=== PATIENT | female | born 1950 | race Caucasian/White ===

== ENCOUNTER 2019-05-02 15:24 | Inpatient (IN) ==
[2019-05-03] MEDS ORDERED: Sildenafil Citrate 20 MG TABLET PO PRN (15:38)
[2019-05-03] MEDS: Vancomycin Oral Soln 125 MG/2.5 ML UDC PO SCH ×2 (18:21→21:30)
[2019-05-03] MEDS: Metoprolol XL (24 HR) Succ 50 MG TAB.ER.24H PO SCH (21:25)
[2019-05-03] MEDS: CEVIMELINE PO SCH (21:25)
[2019-05-03] MEDS: DOXEPIN HCL PO SCH (21:25)
[2019-05-03] MEDS: Lactulose Oral Soln 20 GM/30 ML UDC PO SCH (21:31)
[2019-05-04 06:07] LABS: Albumin 1.9 g/dL (3.5-5.7); Albumin/Globulin Ratio 0.7 (1.1-2.2); Bilirubin,Total 0.9 mg/dL (0.3-1.0); Calcium 8.1 mg/dL (8.6-10.3); Globulin 2.7 g/dL (2.4-3.5); Magnesium 1.9 mg/dL (1.6-2.6); Potassium 4.2 mEq/L (3.5-5.1); Total Protein 4.6 g/dL (6.4-8.9)
[2019-05-04 08:05] LABS: Basophils % 0.1 %; Eosinophils % 0.5 %; Hematocrit 32.9 % (35.3-44.9); Hemoglobin 10.8 g/dL (11.5-15.4); Immature Granulocytes % 1.4 % (0-4); Lymphocytes # 0.6 K/mcL (0.6-4.6); Lymphocytes % 6.9 %; Mean Corpuscular HGB Conc 32.8 g/dL (31.6-35.5); Mean Corpuscular Hemoglobin 30.1 pg (28.0-33.3); Mean Corpuscular Volume 91.6 fL (83.0-100.0); Mean Platelet Volume 10.3 fL (9.4-12.4); Monocytes # 1.2 K/mcL (0.0-1.3); Monocytes % 14.6 %; Neutrophils # 6.5 K/mcL (1.6-8.9); Red Blood Count 3.59 M/mcL (3.82-4.97); Red Cell Distribution Width 16.2 % (11.5-14.5); Segmented Neutrophils % 76.5 %; White Blood Count 8.5 K/mcL (4.3-11.1)
[2019-05-04 08:06] LABS: INR 1.1; Prothrombin Time 12.4 Seconds (9.4-12.1)
[2019-05-04 08:07] LABS: Platelet Count 76 K/mcL (140-400)
[2019-05-04 08:09] LABS: Activated Partial Thrombo Time 30.9 Seconds (26.0-36.0)
--- NOTE | 2019-05-04 08:21 | Internal Med History&Physical ---
Date of Encounter: 05/04/19 Time of Encounter: 08:21 Assessment and Plan (1) Weakness Current visit: Yes Status: Acute We will begin therapy as tolerated. (2) C. difficile colitis Current visit: No Status: Acute We will continue antibiotic regimen as upon transfer. Patient will be kept in isolation per hospital policy. (3) CKD (chronic kidney disease), stage IV Current visit: No Status: Chronic Poor perfusion based on hypoalbuminemia, liver failure, etc. Need to make sure she is optimized so she does not develop hepatorenal syndrome. (4) Pancytopenia Current visit: No Status: Chronic We will need to follow on a frequent basis. Phlebotomy is difficult so we will need to determine central line, if possible. Recent CAT scan showed sp lenomegaly, as well. (5) Ascites Current visit: No Status: Chronic Based on examination, this is currently of moderate degree. This was noted to be present on recent CAT scan, as well. We will need to watch for respiratory failure, SBP, etc. Qualifiers: Ascites type: other type Qualified Code(s): R18.8 - Other ascites (6) Cirrhosis Current visit: No Status: Chronic This is marked, at least [place] C, with severe hypoalbuminemia to 1.9. She has esophageal varices, ascites, pancytopenia -although relatively mild - but edema and marked hyponatremia to 125. This is difficult and will require close monitoring of proteins, fluid status, dietary support, etc. Qualifiers: Hepatic cirrhosis type: unspecified hepatic cirrhosis Ascites presence: with ascites Qualified Code(s): K74.60 - Unspecified cirrhosis of liver; R18.8 - Other ascites (7) CREST (calcinosis, Raynaud's phenomenon, esophageal dysfunction, sclerodactyly, telangiectasia) Current visit: No Status: Chronic As noted, she has multiple problems associated with this. Will need close observation and support. Continue current regimen and watch labs as noted. (8) Dysphagia Current visit: No Status: Chronic Clinically stable, currently. Related to esophagitis and crest syndrome. Qualifiers: Dysphagia type: unspecified Qualified Code(s): R13.10 - Dysphagia, unspecified (9) CAD (coronary artery disease) Current visit: No Status: Chronic Clinically without signs or symptoms currently. She has sold Benefiel ordered and so should not have nitrates unless emergent. Would have low threshold to evaluate if chest pain or pressure develop. Qualifiers: Coronary Disease-Associated Artery/Lesion type: [place] artery [place] vs. transplanted heart: [place] heart Associated angina: without angina Qualified Code(s): I25.10 - Atherosclerotic heart disease of [place] coronary artery without angina pectoris (10) Hyponatremia Current visit: No Status: Acute Apparently worsened by diarrhea and will need to maintain supplementation, balanced with edema and ascites. Will need to stop sodium supplements and resume a low-salt diet or diarrhea resolves. (11) DVT prophylaxis Current visit: No Status: Acute Because of thrombocytopenia, would not recommend use of fractionated heparin, at this time. Similarly, would avoid low dose aspirin, edema prohibits surgical stockings. Therefore, will not be able to tolerate medical or nonmedical DVT prophylaxis. (12) GERD (gastroesophageal reflux disease) Current visit: Yes Status: Acute Controlled on current regimen. Qualifiers: Esophagitis presence: esophagitis presence not specified Qualified Code(s): K21.9 - Gastro-esophageal reflux disease without esophagitis (13) Hyperlipidemia Current visit: Yes Status: Acute Not acute. Will continue current regimen allow follow-up per primary physician. Qualifiers: Hyperlipidemia type: unspecified Qualified Code(s): E78.5 - Hyperlipidemia, unspecified Internal Medicine - H&P: HPI Admitted From: Hospital to Hospital Transfer Plans for Post Hospital Care: Home History of present illness: Ms. Sweeney is a 68 year old female with history of idiopathic crest syndrome for 10 years. She was in her usual state of health until about 10-14 days ago when she developed worsening diarrhea. She was found to have a C. difficile infection and was treated with rifamixin This did not help and she was placed on it though dose for approximately 3 days. She got worse and went to the hospital. There, she was placed on oral vancomycin, was found to have markedly elevated white blood count at 42,000+. She had a extreme left shift and was treated with IV fluids, saline, oral salt tablets (as opposed to a strict low- salt diet) and other supportive care. While hospitalized, she slowly improved and was transferred to us for strengthening, ongoing care and return to normal function. Bowel movements persist had multiple times a day and very loose although she may have 2-3 bowel movements which are loose, at baseline because of her lactulose. She denies melena or hematochezia with any of these episodes. The crest syndrome has now affected mostly her liver so that she has cirrhosis with moderate hepatic failure for the last 2 years. She has been taking lactulose for same. She has esophageal varices and has had banding on 2 occasions. Her most recent EGD failed to show any need for banding. Even though she has significant hypoalbuminemia, she is not suffering from orthopnea. She notes that the lower extremities are markedly edematous, during this hospitalization. She has extensive coronary history with 2 mild heart attacks but has 8 stents placed. She has had a couple episodes of bleeding, but not recently. She required 2 units of blood transfusion at one time. She has had a marginally low platelet count but has not received platelet transfusion. notes that her hyponatremia and fluid retention make her a very carious diuretic versus hypotension risk, for quite some time now. She has lost her left middle finger and is at risk of losing her left index finger, as well. She denies recent chest pain or breathing troubles. She knows that she does have a heart murmur but she is not sure of the type. One I ask specifically, the said that mitral valve regurgitation sounds familiar. says that her memory is occasionally inhibited and it was especially bad before she began lactulose. Now, she is reasonable with some tremor noted when she is not able to take her lactulose. She has kidney problems related to overdiuresis and protein effects of liver dysfunction. Usual creatinine was noted to be a 1.5. Because of difficult vascular access, she has a central port. She has never been a smoker or drinker or used drugs. She is and lives at home with her . She has not been working for about 10 years because of her medical illnesses. Family history is significant for coronary disease in his young 60s, in her father. I spoke about CODE STATUS with and patient and they request that she be made a full code. She has no living will. Past Med Surg Social Fam HX - Past Medical History Medical history: cirrhosis, coronary artery disease, GERD, hyperlipidemia, myocardial infarction, renal disease, other Additional medical history: Crest syndrome Psychiatric history: no psych history - Past Surgical History Surgical History: angioplasty/stent, cholecystectomy, hysterectomy, other Additional surgical history: Heart Stents x 8 - Social History Smoking Status: Never smoker Smokeless Tobacco Status: No Alcohol use: none Drug use: none - Family History Father Living Status: Hx Family Cardiac Disorders: Yes Internal Medicine - H&P: Meds Cevimeline HCl [Evoxac] 90 mg PO HS 09/19/15 [History] Doxepin HCl 30 mg PO HS 09/19/15 [History] Sildenafil Citrate [Revatio] 20 mg PO 3-4XD PRN 09/19/15 [History] Aspirin [Lo-Dose Aspirin EC] 81 mg PO 1200 04/25/19 [History] Atorvastatin [Lipitor] 40 mg PO 1200 04/25/19 [History] Calcium Carbonate/Vitamin D3 [Calcium 500 mg-Vit D3 600 Unit] 1 tab PO BID 04/25/19 [History] Ergocalciferol (VITAMIN D2) [Vitamin D2] 50,000 units PO MO 04/25/19 [History] Ferrous Sulfate 325 mg PO 1200 04/25/19 [History] Furosemide [Lasix] 40 mg PO QAM 04/25/19 [History] Lactulose [Enulose] 10 gm PO BID MDD 40GM 04/25/19 [History] Metoprolol Succinate [Toprol Xl] 50 mg PO BID 04/25/19 [History] Midodrine [ProAmatine] 5 mg PO TID 04/25/19 [History] Pantoprazole Sodium [Protonix] 40 mg PO QPM 04/25/19 [History] Rifaximin [Xifaxan] 550 mg PO BID 04/25/19 [History] Spironolactone [Aldactone] 25 mg PO 1200 04/25/19 [History] Tramadol HCl [Ultram] 50 mg PO Q8H PRN 04/25/19 [History] Lactobacillus [Culturelle] 2 each PO DAILY #30 cap.sprink 05/03/19 [Rx] Sodium Bicarbonate 650 mg PO TID #60 tablet 05/03/19 [Rx] Sodium Chloride [Sodium Chloride Tab] 1 gm PO TID #60 tablet 05/03/19 [Rx] Vancomycin Oral Soln [Firvanq] 125 mg PO QID 7 Days #28 udc 05/03/19 [Rx] Allergy/AdvReac Type Severity Reaction Status Date / Time codeine Allergy Mild Nausea Verified 04/25/19 16:46 All Systems PM: Patient has no complaint of chest discomfort, dyspnea, orthopnea, breathing problems, palpitations, nausea or vomiting, constipation or diarrhea, other changes in bowel habits, heartburn, difficulty with urination, kidney problems or kidney stones, fevers chills or sweats, rash or itching, seizures, headache or lightheadedness, heat or cold intolerance, blood problems or anemia, or other new complaints, except as mentioned above. Review of systems is otherwise negative. - Constitutional Vitals: Temp Pulse Resp BP Pulse Ox 98.2 F 91 18 117/77 95 05/04/19 07:10 05/04/19 07:10 05/04/19 07:10 05/04/19 07:10 05/04/19 07:10 Exam: Examination: (Except as mentioned above): General: In no apparent distress, alert and oriented 3. Head: Atraumatic and normocephalic. Eyes: Extraocular muscles are intact, pupils equal round and reactive to light and accommodation. Sclerae anicteric. Marked pallor. Ears: External ears are normal to inspection and hearing is grossly normal. Nose: Patent without lesion noted. Mouth: No intraoral lesions seen. Dentition is in poor repair with marked gingival retraction and missing several teeth upper and lower. Neck: Supple with trachea midline. There is no thyromegaly or adenopathy and carotids are 2+ without bruit heard. Respiratory: No use of accessory muscles. Lungs are clear throughout. Normal airflow. Cardiovascular: Regular rate and rhythm but she has a grade 2/6 systolic murmur heard at the left second intercostal space to left ventricular outflow tract. Does not radiate to her carotids. Abdomen: Bowel sounds are normal. No hepatosplenomegaly masses or tenderness. Abdomen is mild to moderately distended consistent with her known ascites. Even though she has documented hepatosplenomegaly by CAT scan, these are not palpable. No herniation. Extremities: No cyanosis clubbing but she does have 3+ edema at the calves and ankles with less at the feet. She has diminished capillary refill throughout her extremities.. Neurological: A and O 3. Cranial nerves II through XII are intact. No focal deficits and no abnormal movements or postures. Skin: Warm and non-diaphoretic with no lesions noted. Breasts, pelvic and rectal: Not examined. Internal Med - H&P Results - Labs CBC & Chem 7: 05/04/19 07:54 05/04/19 05:45 Labs: Short CBC 05/04/19 Range/Units 07:54 WBC 8.5 (4.3-11.1) K/mcL Hgb 10.8 L (11.5-15.4) g/dL Hct 32.9 L (35.3-44.9) % Plt Count 76 L (140-400) K/mcL Neutrophils # 6.5 (1.6-8.9) K/mcL BMP 05/04/19 05:45 Sodium 125 L Potassium 4.2 Chloride 99 Carbon Dioxide 21 L BUN 44 H Creatinine 1.30 H Glucose 91 Calcium 8.1 L Liver Function 05/04/19 Range/Units 05:45 Total Bilirubin 0.9 (0.3-1.0) mg/dL AST 24 (13-39) Units/L ALT 9 (7-52) Units/L Alkaline Phosphatase 170 H (34-104) Units/L Albumin 1.9 L (3.5-5.7) g/dL
[2019-05-04] MEDS: Lactobacillus 1 EACH CAP.SPRINK PO SCH (09:47)
[2019-05-04] MEDS: Furosemide 40 MG TABLET PO SCH (09:47)
[2019-05-04] MEDS: Vancomycin Oral Soln 125 MG/2.5 ML UDC PO SCH ×4 (09:47→21:32)
[2019-05-04] MEDS: Cholecalciferol (D-3) 1,000 UNIT (25MCG) TABLET PO SCH (09:47)
[2019-05-04] MEDS: Lactulose Oral Soln 20 GM/30 ML UDC PO SCH ×2 (09:48→21:32)
[2019-05-04] MEDS: Metoprolol XL (24 HR) Succ 50 MG TAB.ER.24H PO SCH ×2 (09:48→21:33)
[2019-05-04] MEDS: Spironolactone 25 MG TABLET PO SCH (13:14)
[2019-05-04] MEDS: Aspirin Enteric Coated 81 MG Tablet PO SCH (13:14)
[2019-05-04] MEDS: CEVIMELINE PO SCH (21:34)
[2019-05-04] MEDS: DOXEPIN HCL PO SCH (21:34)
[2019-05-05] MEDS: Furosemide 40 MG TABLET PO SCH (09:23)
[2019-05-05] MEDS: Cholecalciferol (D-3) 1,000 UNIT (25MCG) TABLET PO SCH (09:23)
[2019-05-05] MEDS: Lactobacillus 1 EACH CAP.SPRINK PO SCH (09:23)
[2019-05-05] MEDS: Lactulose Oral Soln 20 GM/30 ML UDC PO SCH ×2 (09:24→21:23)
[2019-05-05] MEDS: Vancomycin Oral Soln 125 MG/2.5 ML UDC PO SCH ×4 (09:24→21:23)
[2019-05-05] MEDS: Metoprolol XL (24 HR) Succ 50 MG TAB.ER.24H PO SCH (09:24)
[2019-05-05 09:41] LABS: BUN/Creatinine Ratio 34 (6-26); Blood Urea Nitrogen 37 mg/dL (8-23); Calcium 8.3 mg/dL (8.6-10.3); Carbon Dioxide 23 mEq/L (23-29); Chloride 98 mEq/L (98-107); Glucose 88 mg/dL (70-105); Osmolality,Calculated 272 (280-300); Potassium 3.8 mEq/L (3.5-5.1); Sodium 127 mEq/L (136-145); eGFR For African Americans > 60 (> 60); eGFR For Non-African Americans 50 (> 60)
[2019-05-05] MEDS: Aspirin Enteric Coated 81 MG Tablet PO SCH (12:10)
[2019-05-05] MEDS: Spironolactone 25 MG TABLET PO SCH (12:10)
--- NOTE | 2019-05-05 12:17 | Internal Med Progress Note ---
Date of Encounter: 05/05/19 Time of Encounter: 12:34 - Subjective Interval history: Assessment and Plan (1) Weakness Current visit: Yes Status: Acute We will begin therapy as tolerated. (2) C. difficile colitis Current visit: No Status: Acute We will continue antibiotic regimen as upon transfer. Patient will be kept in isolation per hospital policy. (3) CKD (chronic kidney disease), stage IV Current visit: No Status: Chronic Poor perfusion based on hypoalbuminemia, liver failure, etc. Need to make sure she is optimized so she does not develop hepatorenal syndrome. (4) Pancytopenia Current visit: No Status: Chronic We will need to follow on a frequent basis. Phlebotomy is difficult so we will need to determine central line, if possible. Recent CAT scan showed splenomegaly, as well. (5) Ascites Current visit: No Status: Chronic Based on examination, this is currently of moderate degree. This was noted to be present on recent CAT scan, as well. We will need to watch for respiratory failure, SBP, etc. Qualifiers: Ascites type: other type Qualified Code(s): R18.8 - Other ascites (6) Cirrhosis Current visit: No Status: Chronic This is marked, at least [place] C, with severe hypoalbuminemia to 1.9. She has esophageal varices, ascites, pancytopenia -although relatively mild - but edema and marked hyponatremia to 125. This is difficult and will require close monitoring of proteins, fluid status, dietary support, etc. Qualifiers: Hepatic cirrhosis type: unspecified hepatic cirrhosis Ascites presence: with ascites Qualified Code(s): K74.60 - Unspecified cirrhosis of liver; R18.8 - Other ascites (7) CREST (calcinosis, Raynaud's phenomenon, esophageal dysfunction, sclerodactyly, telangiectasia) Current visit: No Status: Chronic As noted, she has multiple problems associated with this. Will need close observation and support. Continue current regimen and watch labs as noted. (8) Dysphagia Current visit: No Status: Chronic Clinically stable, currently. Related to esophagitis and crest syndrome. Qualifiers: Dysphagia type: unspecified Qualified Code(s): R13.10 - Dysphagia, unspecified (9) CAD (coronary artery disease) Current visit: No Status: Chronic Clinically without signs or symptoms currently. She has sold Benefiel ordered and so should not have nitrates unless emergent. Would have low threshold to evaluate if chest pain or pressure develop. Qualifiers: Coronary Disease-Associated Artery/Lesion type: [place] artery [place] vs. transplanted heart: [place] heart Associated angina: without angina Qualified Code(s): I25.10 - Atherosclerotic heart disease of [place] coronary artery without angina pectoris (10) Hyponatremia Current visit: No Status: Acute Apparently worsened by diarrhea and will need to maintain supplementation, balanced with edema and ascites. Will need to stop sodium supplements and resume a low-salt diet or diarrhea resolves. (11) DVT prophylaxis Current visit: No Status: Acute Because of thrombocytopenia, would not recommend use of fractionated heparin, at this time. Similarly, would avoid low dose aspirin, edema prohibits surgical stockings. Therefore, will not be able to tolerate medical or nonmedical DVT prophylaxis. (12) GERD (gastroesophageal reflux disease) Current visit: Yes Status: Acute Controlled on current regimen. Qualifiers: Esophagitis presence: esophagitis presence not specified Qualified Code(s): K21.9 - Gastro-esophageal reflux disease without esophagitis (13) Hyperlipidemia Current visit: Yes Status: Acute Not acute. Will continue current regimen allow follow-up per primary physician. Qualifiers: Hyperlipidemia type: unspecified Qualified Code(s): E78.5 - Hyperlipidemia, unspecified Internal Medicine - H&P: HPI Admitted From: Hospital to Hospital Transfer Plans for Post Hospital Care: Home History of present illness: Ms. Sweeney is a 68 year old female with history of idiopathic crest syndrome for 10 years. She was in her usual state of health until about 10-14 days ago when she developed worsening diarrhea. She was found to have a C. difficile infection and was treated with rifamixin This did not help and she was placed on it though dose for approximately 3 days. She got worse and went to the hospital. There, she was placed on oral vancomycin, was found to have markedly elevated white blood count at 42,000+. She had a extreme left shift and was treated with IV fluids, saline, oral salt tablets (as opposed to a strict low- salt diet) and other supportive care. While hospitalized, she slowly improved and was transferred to us for the medical center, ongoing care and return to normal function. Bowel movements persist had multiple times a day and very loose although she may have 2-3 bowel movements which are loose, at baseline because of her lactulose. She denies melena or hematochezia with any of these episodes. The crest syndrome has now affected mostly her liver so that she has cirrhosis with moderate hepatic failure for the last 2 years. She has been taking lactulose for same. She has esophageal varices and has had banding on 2 occasions. Her most recent EGD failed to show any need for banding. Even though she has significant hypoalbuminemia, she is not suffering from orthopnea. She notes that the lower extremities are markedly edematous, during this hospitalization. She has extensive coronary history with 2 mild heart attacks but has 8 stents placed. She has had a couple episodes of bleeding, but not recently. She required 2 units of blood transfusion at one time. She has had a marginally low platelet c ount but has not received platelet transfusion. notes that her hyponatremia and fluid retention make her a very carious diuretic versus hypotension risk, for quite some time now. She has lost her left middle finger and is at risk of losing her left index finger, as well. She denies recent chest pain or breathing troubles. She knows that she does have a heart murmur but she is not sure of the type. One I ask specifically, the said that mitral valve regurgitation sounds familiar. says that her memory is occasionally inhibited and it was especially bad before she began lactulose. Now, she is reasonable with some tremor noted when she is not able to take her lactulose. She has kidney problems related to overdiuresis and protein effects of liver dysfunction. Usual creatinine was noted to be a 1.5. Because of difficult vascular access, she has a central port. She has never been a smoker or drinker or used drugs. She is and lives at home with her . She has not been working for about 10 years because of her medical illnesses. Family history is significant for coronary disease in his young 60s, in her father. I spoke about CODE STATUS with and patient and they request that she be made a full code. She has no living will. Exam: Examination: General: In no apparent distress, alert and oriented 3. Head: Atraumatic and normocephalic. Eyes: Extraocular muscles are intact, pupils equal round and reactive to light and accommodation. Sclerae anicteric. Marked pallor. Ears: External ears are normal to inspection and hearing is grossly normal. Nose: Patent without lesion noted. Mouth: No intraoral lesions seen. Dentition is in poor repair with marked gingival retraction and missing several teeth upper and lower. Neck: Supple with trachea midline. There is no thyromegaly or adenopathy and carotids are 2+ without bruit heard. Respiratory: No use of accessory muscles. Lungs are clear throughout. Normal airflow. Cardiovascular: Regular rate and rhythm but she has a grade 2/6 systolic murmur heard at the left second intercostal space to left ventricular outflow tract. Does not radiate to her carotids. Abdomen: Bowel sounds are normal. Abdomen is mild to moderately distended consistent with her known ascites. Even though she has documented hepatosple nomegaly by CAT scan, these are not palpable. No herniation. Extremities: No cyanosis clubbing but she does have 3+ edema at the calves and ankles with less at the feet. She has diminished capillary refill throughout her extremities.. Neurological: A and O 3. Cranial nerves II through XII are intact. No focal deficits and no abnormal movements or postures. Skin: Warm and non-diaphoretic with no lesions noted. - Constitutional Vitals: Temp Pulse Resp BP Pulse Ox 98.6 F 65 16 115/72 94 05/05/19 07:00 05/05/19 07:00 05/05/19 07:00 05/05/19 07:00 05/04/19 21:57 Internal Medicine: Result - Labs CBC & Chem 7: 05/04/19 07:54 05/05/19 08:38 Labs: BMP 05/05/19 08:38 Sodium 127 L Potassium 3.8 Chloride 98 Carbon Dioxide 23 BUN 37 H Creatinine 1.10 Glucose 88 Calcium 8.3 L - ABG Interpretation ABG results: PT/INR, D-dimer PT 12.4 Seconds (9.4-12.1) H 05/04/19 04:00 Consult Discharge Plan - Plan Referrals: Kam Abreu Jr, MD [Primary Care Provider] -
[2019-05-05] MEDS: CEVIMELINE PO SCH (21:12)
[2019-05-05] MEDS: DOXEPIN HCL PO SCH (21:12)
[2019-05-05] MEDS: Metoprolol XL (24 HR) Succ 25 MG TAB.ER.24H PO SCH (21:22)
[2019-05-06] MEDS: Metoprolol XL (24 HR) Succ 25 MG TAB.ER.24H PO SCH ×2 (08:33→20:35)
[2019-05-06] MEDS: Lactobacillus 1 EACH CAP.SPRINK PO SCH (08:33)
[2019-05-06] MEDS: Furosemide 40 MG TABLET PO SCH (08:33)
[2019-05-06] MEDS: Cholecalciferol (D-3) 1,000 UNIT (25MCG) TABLET PO SCH (08:33)
[2019-05-06] MEDS: Vancomycin Oral Soln 125 MG/2.5 ML UDC PO SCH ×4 (08:34→20:34)
[2019-05-06] MEDS: Lactulose Oral Soln 20 GM/30 ML UDC PO SCH ×2 (11:32→19:33)
[2019-05-06] MEDS: Spironolactone 25 MG TABLET PO SCH (11:37)
[2019-05-06] MEDS: Aspirin Enteric Coated 81 MG Tablet PO SCH (11:37)
--- NOTE | 2019-05-06 12:26 | Internal Med Progress Note ---
Date of Encounter: 05/06/19 Time of Encounter: 12:24 - Assessment and plan (1) Colitis Current Visit: Yes Status: Acute Assessment and plan: Continue current medication. Monitor. Follow labs. Continue contact precautions. (2) Cirrhosis Current Visit: Yes Status: Chronic Assessment and plan: Monitor labs. Qualifiers: Hepatic cirrhosis type: unspecified hepatic cirrhosis Ascites presence: with ascites Qualified Code(s): K74.60 - Unspecified cirrhosis of liver; R18.8 - Other ascites (3) CREST (calcinosis, Raynaud's phenomenon, esophageal dysfunction, sclerodactyly, telangiectasia) Current Visit: Yes Status: Chronic Assessment and plan: Follow up with machine tailer. Continue current regimen. (4) CKD (chronic kidney disease), stage IV Current Visit: Yes Status: Chronic Assessment and plan: Will repeat labs in a.m. Avoid nephrotoxic agents. (5) Weakness Current Visit: Yes Status: Acute Assessment and plan: PT and OT to eval and treat. Will follow progress. - Time Spent With Patient less than 15 minutes - Subjective Interval history: Participating well with therapy. Was able to ambulate in hallway. at bedside at this time. Denies any pain. States she is continuing to have diarrhea. On contact precautions for CDifF. Is trying to eat meals and encouraging PO fluids. Denies fever, chills, nausea or vomitting. Denies shortness of breath or chest pain. - Constitutional Vitals: Temp Pulse Resp BP Pulse Ox 97.5 F L 70 15 104/68 95 05/06/19 07:55 05/06/19 07:55 05/06/19 07:55 05/06/19 07:55 05/06/19 07:55 General appearance: Present: cooperative, mild distress, A&O X 3, no acute distress, answers questions appropriately - Head Head exam: Present: atraumatic, normocephalic - Eye Eye exam: Present: PERRL, conjuntiva pink, sclera anicteric Pupils: Present: PERRL - Neck Neck exam general surgery: Present: supple, trachea midline. Absent: lymphadenopathy - Respiratory Respiratory exam: Present: CTAB. Absent: accessory muscle use, rales, rhonchi, wheezes - Cardiovascular Cardiovascular exam: Present: RRR, +S1, +S2. Absent: diastolic murmur, gallop, rubs, systolic murmur - GI/Abdominal GI/Abdominal exam: Present: normal bowel sounds, soft, no peritoneal signs. Absent: distended, tenderness - Extremities Exam Extremities exam: Present: warm, radial pulses palpable and symmetrical. Absent: calf tenderness, cyanotic, pedal edema Additional comments: Non-pitting bilateral lower extremity edema - Neurological Exam Neurological exam: Present: CN II-XII intact, oriented X3, no focal deficits. Absent: pronater drift, facial droop, speech deficit - Skin Skin exam: Present: dry, intact Internal Medicine: Result - Labs CBC & Chem 7: 05/04/19 07:54 05/05/19 08:38 - ABG Interpretation ABG results: PT/INR, D-dimer PT 12.4 Seconds (9.4-12.1) H 05/04/19 04:00 Consult Discharge Plan - Plan Referrals: Kam Abreu Jr, MD [Primary Care Provider] -
[2019-05-06 14:15] LABS: Basophils % 0.1 %; Eosinophils % 0.1 %; Hematocrit 33.2 % (35.3-44.9); Hemoglobin 10.6 g/dL (11.5-15.4); Lymphocytes # 0.7 K/mcL (0.6-4.6); Lymphocytes % 8.5 %; Mean Corpuscular HGB Conc 31.9 g/dL (31.6-35.5); Mean Corpuscular Hemoglobin 30.2 pg (28.0-33.3); Mean Corpuscular Volume 94.6 fL (83.0-100.0); Mean Platelet Volume 10.4 fL (9.4-12.4); Monocytes # 1.5 K/mcL (0.0-1.3); Red Blood Count 3.51 M/mcL (3.82-4.97); Red Cell Distribution Width 17.2 % (11.5-14.5); Segmented Neutrophils % 72.3 %; White Blood Count 8.3 K/mcL (4.3-11.1)
[2019-05-06 14:38] LABS: Platelet Count 86 K/mcL (140-400)
[2019-05-06 15:36] LABS: BUN/Creatinine Ratio 31 (6-26); Blood Urea Nitrogen 34 mg/dL (8-23); Calcium 8.2 mg/dL (8.6-10.3); Carbon Dioxide 22 mEq/L (23-29); Chloride 99 mEq/L (98-107); Glucose 102 mg/dL (70-105); Osmolality,Calculated 272 (280-300); Potassium 3.8 mEq/L (3.5-5.1); Sodium 127 mEq/L (136-145); eGFR For African Americans > 60 (> 60); eGFR For Non-African Americans 50 (> 60)
[2019-05-06] MEDS: DOXEPIN HCL PO SCH (20:18)
[2019-05-06] MEDS: CEVIMELINE PO SCH (20:18)
[2019-05-07] MEDS: Furosemide 40 MG TABLET PO SCH (08:58)
[2019-05-07] MEDS: Metoprolol XL (24 HR) Succ 25 MG TAB.ER.24H PO SCH ×2 (08:59→19:53)
[2019-05-07] MEDS: Cholecalciferol (D-3) 1,000 UNIT (25MCG) TABLET PO SCH (08:59)
[2019-05-07] MEDS: Lactobacillus 1 EACH CAP.SPRINK PO SCH (08:59)
[2019-05-07] MEDS: Lactulose Oral Soln 20 GM/30 ML UDC PO SCH ×2 (09:00→19:53)
[2019-05-07] MEDS: Vancomycin Oral Soln 125 MG/2.5 ML UDC PO SCH ×4 (09:00→19:53)
[2019-05-07] MEDS: traMADol 50 MG TABLET PO PRN ×2 (09:15→16:46)
[2019-05-07] MEDS: Aspirin Enteric Coated 81 MG Tablet PO SCH (12:02)
[2019-05-07] MEDS: Spironolactone 25 MG TABLET PO SCH (12:02)
--- NOTE | 2019-05-07 17:13 | Internal Med Progress Note ---
Date of Encounter: 05/07/19 Time of Encounter: 15:23 - Subjective Interval history: Assessment and Plan (1) Weakness Current visit: Yes Status: Acute We will begin therapy as tolerated. (2) C. difficile colitis Current visit: No Status: Acute We will continue antibiotic regimen as upon transfer. Patient will be kept in isolation per hospital policy. (3) CKD (chronic kidney disease), stage IV Current visit: No Status: Chronic Poor perfusion based on hypoalbuminemia, liver failure, etc. Need to make sure she is optimized so she does not develop hepatorenal syndrome. (4) Pancytopenia Current visit: No Status: Chronic We will need to follow on a frequent basis. Phlebotomy is difficult so we will need to determine central line, if possible. Recent CAT scan showed splenomegaly, as well. (5) Ascites Current visit: No Status: Chronic Based on examination, this is currently of moderate degree. This was noted to be present on recent CAT scan, as well. We will need to watch for respiratory failure, SBP, etc. Qualifiers: Ascites type: other type Qualified Code(s): R18.8 - Other ascites (6) Cirrhosis Current visit: No Status: Chronic This is marked, at least [place] C, with severe hypoalbuminemia to 1.9. She has esophageal varices, ascites, pancytopenia -although relatively mild - but edema and marked hyponatremia to 125. This is difficult and will require close monitoring of proteins, fluid status, dietary support, etc. Qualifiers: Hepatic cirrhosis type: unspecified hepatic cirrhosis Ascites presence: with ascites Qualified Code(s): K74.60 - Unspecified cirrhosis of liver; R18.8 - Other ascites (7) CREST (calcinosis, Raynaud's phenomenon, esophageal dysfunction, sclerodactyly, telangiectasia) Current visit: No Status: Chronic As noted, she has multiple problems associated with this. Will need close observation and support. Continue current regimen and watch labs as noted. (8) Dysphagia Current visit: No Status: Chronic Clinically stable, currently. Related to esophagitis and crest syndrome. Qualifiers: Dysphagia type: unspecified Qualified Code(s): R13.10 - Dysphagia, unspecified (9) CAD (coronary artery disease) Current visit: No Status: Chronic Clinically without signs or symptoms currently. She has sold Benefiel ordered and so should not have nitrates unless emergent. Would have low threshold to evaluate if chest pain or pressure develop. Qualifiers: Coronary Disease-Associated Artery/Lesion type: [place] artery [place] vs. transplanted heart: [place] heart Associated angina: without angina Qualified Code(s): I25.10 - Atherosclerotic heart disease of [place] coronary artery without angina pectoris (10) Hyponatremia Current visit: No Status: Acute Apparently worsened by diarrhea and will need to maintain supplementation, balanced with edema and ascites. Will need to stop sodium supplements and resume a low-salt diet or diarrhea resolves. (11) DVT prophylaxis Current visit: No Status: Acute Because of thrombocytopenia, would not recommend use of fractionated heparin, at this time. Similarly, would avoid low dose aspirin, edema prohibits surgical stockings. Therefore, will not be able to tolerate medical or nonmedical DVT prophylaxis. (12) GERD (gastroesophageal reflux disease) Current visit: Yes Status: Acute Controlled on current regimen. Qualifiers: Esophagitis presence: esophagitis presence not specified Qualified Code(s): K21.9 - Gastro-esophageal reflux disease without esophagitis (13) Hyperlipidemia Current visit: Yes Status: Acute Not acute. Will continue current regimen allow follow-up per primary physician. Qualifiers: Hyperlipidemia type: unspecified Qualified Code(s): E78.5 - Hyperlipidemia, unspecified Internal Medicine - H&P: HPI Admitted From: Hospital to Hospital Transfer Plans for Post Hospital Care: Home History of present illness: Ms. Sweeney is a 68 year old female with history of idiopathic crest syndrome for 10 years. She was in her usual state of health until about 10-14 days ago when she developed worsening diarrhea. She was found to have a C. difficile infection and was treated with rifamixin This did not help and she was placed on it though dose for approximately 3 days. She got worse and went to the hospital. There, she was placed on oral vancomycin, was found to have markedly elevated white blood count at 42,000+. She had a extreme left shift and was treated with IV fluids, saline, oral salt tablets (as opposed to a strict low- salt diet) and other supportive care. While hospitalized, she slowly improved and was transferred to us for [facility], ongoing care and return to normal function. Bowel movements persist had multiple times a day and very loose although she may have 2-3 bowel movements which are loose, at baseline because of her lactulose. She denies melena or hematochezia with any of these episodes. The crest syndrome has now affected mostly her liver so that she has cirrhosis with moderate hepatic failure for the last 2 years. She has been taking lactulose for same. She has esophageal varices and has had banding on 2 occasions. Her most recent EGD failed to show any need for banding. Even though she has significant hypoalbuminemia, she is not suffering from orthopnea. She notes that the lower extremities are markedly edematous, during this hospitalization. She has extensive coronary history with 2 mild heart attacks but has 8 stents placed. She has had a couple episodes of bleeding, but not recently. She required 2 units of blood transfusion at one time. She has had a marginally low platelet c ount but has not received platelet transfusion. notes that her hyponatremia and fluid retention make her a very carious diuretic versus hypotension risk, for quite some time now. She has lost her left middle finger and is at risk of losing her left index finger, as well. She denies recent chest pain or breathing troubles. She knows that she does have a heart murmur but she is not sure of the type. One I ask specifically, the said that mitral valve regurgitation sounds familiar. says that her memory is occasionally inhibited and it was especially bad before she began lactulose. Now, she is reasonable with some tremor noted when she is not able to take her lactulose. She has kidney problems related to overdiuresis and protein effects of liver dysfunction. Usual creatinine was noted to be a 1.5. Because of difficult vascular access, she has a central port. She has never been a smoker or drinker or used drugs. She is and lives at home with her . She has not been working for about 10 years because of her medical illnesses. Family history is significant for coronary disease in his young 60s, in her father. I spoke about CODE STATUS with and patient and they request that she be made a full code. She has no living will. Exam: Examination: General: In no apparent distress, alert and oriented 3. Head: Atraumatic and normocephalic. Eyes: Extraocular muscles are intact, pupils equal round and reactive to light and accommodation. Sclerae anicteric. Marked pallor. Ears: External ears are normal to inspection and hearing is grossly normal. Nose: Patent without lesion noted. Mouth: No intraoral lesions seen. Dentition is in poor repair with marked gingival retraction and missing several teeth upper and lower. Neck: Supple with trachea midline. There is no thyromegaly or adenopathy and carotids are 2+ without bruit heard. Respiratory: No use of accessory muscles. Lungs are clear throughout. Normal airflow. Cardiovascular: Regular rate and rhythm but she has a grade 2/6 systolic murmur heard at the left second intercostal space to left ventricular outflow tract. Does not radiate to her carotids. Abdomen: Bowel sounds are normal. Abdomen is mild to moderately distended consistent with her known ascites. Even though she has documented hepatosple nomegaly by CAT scan, these are not palpable. No herniation. Extremities: No cyanosis clubbing but she does have 3+ edema at the calves and ankles with less at the feet. She has diminished capillary refill throughout her extremities.. Neurological: A and O 3. Cranial nerves II through XII are intact. No focal deficits and no abnormal movements or postures. Skin: Warm and non-diaphoretic with no lesions noted. - Constitutional Vitals: Temp Pulse Resp BP Pulse Ox 97.4 F L 73 17 105/67 96 05/07/19 07:04 05/07/19 07:04 05/07/19 07:04 05/07/19 07:04 05/07/19 07:04 General appearance: Present: cooperative, mild distress, A&O X 3, no acute distress, answers questions appropriately Internal Medicine: Result - Labs CBC & Chem 7: 05/06/19 14:15 05/06/19 14:18 - ABG Interpretation ABG results: PT/INR, D-dimer PT 12.4 Seconds (9.4-12.1) H 05/04/19 04:00 Consult Discharge Plan - Plan Referrals: Kam Abreu Jr, MD [Primary Care Provider] -
[2019-05-07] MEDS: DOXEPIN HCL PO SCH (19:53)
[2019-05-07] MEDS: CEVIMELINE PO SCH (19:53)
[2019-05-08] MEDS: Lactobacillus 1 EACH CAP.SPRINK PO SCH (10:07)
[2019-05-08] MEDS: Cholecalciferol (D-3) 1,000 UNIT (25MCG) TABLET PO SCH (10:07)
[2019-05-08] MEDS: Vancomycin Oral Soln 125 MG/2.5 ML UDC PO SCH ×4 (10:08→19:52)
[2019-05-08] MEDS: Metoprolol XL (24 HR) Succ 25 MG TAB.ER.24H PO SCH ×2 (10:08→19:52)
[2019-05-08] MEDS: Lactulose Oral Soln 20 GM/30 ML UDC PO SCH ×2 (10:08→19:52)
[2019-05-08] MEDS: traMADol 50 MG TABLET PO PRN ×2 (10:08→18:09)
[2019-05-08] MEDS: Furosemide 40 MG TABLET PO SCH (10:08)
[2019-05-08] MEDS: Spironolactone 25 MG TABLET PO SCH (12:54)
[2019-05-08] MEDS: Aspirin Enteric Coated 81 MG Tablet PO SCH (12:55)
--- NOTE | 2019-05-08 18:46 | Internal Med Progress Note ---
Date of Encounter: 05/08/19 Time of Encounter: 17:30 - Subjective Interval history: Assessment and Plan (1) Weakness Current visit: Yes Status: Acute We will begin therapy as tolerated. pt says she usually spends most of day in bed at home for past 6 mos discussed with pt and her he retired early and spends all time caring for her he says she stays in bed most of day and then is awake at night when he sleep she wont go to social or fam events pt says embarrassed and does not want to be burden pt distressed but not know what to do since he loves her and says he knows she is fragile discussed with the two to have discussion between themselves as they say they both tend to keep things in (2) C. difficile colitis Current visit: No Status: Acute We will continue antibiotic regimen as upon transfer. Patient will be kept in isolation per hospital policy. Pt not eating well but states she usually does not eat much even before this (3) CKD (chronic kidney disease), stage IV Current visit: No Status: Chronic Poor perfusion based on hypoalbuminemia, liver failure, etc. Need to make sure she is optimized so she does not develop hepatorenal syndrome. (4) Pancytopenia Current visit: No Status: Chronic We will need to follow on a frequent basis. Phlebotomy is difficult so we will need to determine central line, if possible. Recent CAT scan showed splenomegaly, as well. (5) Ascites Current visit: No Status: Chronic Based on examination, this is currently of moderate degree. This was noted to be present on recent CAT scan, as well. We will need to watch for respiratory failure, SBP, etc. Qualifiers: Ascites type: other type Qualified Code(s): R18.8 - Other ascites (6) Cirrhosis Current visit: No Status: Chronic This is marked, at least [place] C, with severe hypoalbuminemia to 1.9. She has esophageal varices, ascites, pancytopenia -although relatively mild - but edema and marked hyponatremia to 125. This is difficult and will require close monitoring of proteins, fluid status, dietary support, etc. Qualifiers: Hepatic cirrhosis type: unspecified hepatic cirrhosis Ascites presence: with ascites Qualified Code(s): K74.60 - Unspecified cirrhosis of liver; R18.8 - Other ascites (7) CREST (calcinosis, Raynaud's phenomenon, esophageal dysfunction, scleroda ctyly, telangiectasia) Current visit: No Status: Chronic As noted, she has multiple problems associated with this. Will need close observation and support. Continue current regimen and watch labs as noted. pt says that her illness started shortly after trauma of loosing her brother in [place] (8) Dysphagia Current visit: No Status: Chronic Clinically stable, currently. Related to esophagitis and crest syndrome. Qualifiers: Dysphagia type: unspecified Qualified Code(s): R13.10 - Dysphagia, unspecified (9) CAD (coronary artery disease) Current visit: No Status: Chronic Clinically without signs or symptoms currently. She has sold Benefiel ordered and so should not have nitrates unless emergent. Would have low threshold to evaluate if chest pain or pressure develop. Qualifiers: Coronary Disease-Associated Artery/Lesion type: [place] artery [place] vs. transplanted heart: [place] heart Associated angina: without angina Qualified Code(s): I25.10 - Atherosclerotic heart disease of [place] coronary artery without angina pectoris (10) Hyponatremia Current visit: No Status: Acute Apparently worsened by diarrhea and will need to maintain supplementation, dione miguel with edema and ascites. Will need to stop sodium supplements and resume a low-salt diet or diarrhea resolves. (11) DVT prophylaxis Current visit: No Status: Acute Because of thrombocytopenia, would not recommend use of fractionated heparin, at this time. Similarly, would avoid low dose aspirin, edema prohibits surgical stockings. Therefore, will not be able to tolerate medical or nonmedical DVT prophylaxis. (12) GERD (gastroesophageal reflux disease) Current visit: Yes Status: Acute Controlled on current regimen. Qualifiers: Esophagitis presence: esophagitis presence not specified Qualified Code(s): K21.9 - Gastro-esophageal reflux disease without esophagitis (13) Hyperlipidemia Current visit: Yes Status: Acute Not acute. Will continue current regimen allow follow-up per primary physician. Qualifiers: Hyperlipidemia type: unspecified Qualified Code(s): E78.5 - Hyperlipidemia, unspecified Interval hx pt reports feeling stronger today Exam: Examination: General: In no apparent distress, alert and oriented 3. Head: Atraumatic and normocephalic. Eyes: Extraocular muscles are intact, pupils equal round and reactive to light and accommodation. Sclerae anicteric. Marked pallor. Ears: External ears are normal to inspection and hearing is grossly normal. Nose: Patent without lesion noted. Mouth: No intraoral lesions seen. Dentition is in poor repair with marked gingival retraction and missing several teeth upper and lower. Neck: Supple with trachea midline. There is no thyromegaly or adenopathy and carotids are 2+ without bruit heard. Respiratory: No use of accessory muscles. Lungs are clear throughout. Normal airflow. Cardiovascular: Regular rate and rhythm but she has a grade 2/6 systolic murmur heard at the left second intercostal space to left ventricular outflow tract. Does not radiate to her carotids. Abdomen: Bowel sounds are normal. Abdomen is mild to moderately distended consistent with her known ascites. Even though she has documented hepatosplenomegaly by CAT scan, these are not palpable. No herniation. Extremities: No cyanosis clubbing but she does have 3+ edema at the calves and ankles with less at the feet. She has diminished capillary refill throughout her extremities.. Neurological: A and O 3. Cranial nerves II through XII are intact. No focal deficits and no abnormal movements or postures. Skin: Warm and non-diaphoretic with no lesions noted. - Constitutional Vitals: Temp Pulse Resp BP Pulse Ox 97.6 F 75 16 125/67 98 05/08/19 07:50 05/08/19 07:50 05/08/19 07:50 05/08/19 07:50 05/08/19 07:50 General appearance: Present: cooperative, mild distress, A&O X 3, no acute distress, answers questions appropriately Internal Medicine: Result - Labs CBC & Chem 7: 05/06/19 14:15 05/06/19 14:18 - ABG Interpretation ABG results: PT/INR, D-dimer PT 12.4 Seconds (9.4-12.1) H 05/04/19 04:00 Consult Discharge Plan - Plan Referrals: Kam Abreu Jr, MD [Primary Care Provider] -
[2019-05-08] MEDS: CEVIMELINE PO SCH (19:52)
[2019-05-08] MEDS: DOXEPIN HCL PO SCH (19:52)
[2019-05-09 06:14] LABS: Basophils % 0.2 %; Eosinophils # 0.1 K/mcL (0.0-0.6); Hematocrit 28.2 % (35.3-44.9); Hemoglobin 9.1 g/dL (11.5-15.4); Immature Granulocytes % 0.6 % (0-4); Lymphocytes # 0.7 K/mcL (0.6-4.6); Lymphocytes % 13.3 %; Mean Corpuscular HGB Conc 32.3 g/dL (31.6-35.5); Mean Corpuscular Hemoglobin 30.3 pg (28.0-33.3); Mean Platelet Volume 10.4 fL (9.4-12.4); Monocytes # 0.7 K/mcL (0.0-1.3); Monocytes % 14.4 %; Neutrophils # 3.6 K/mcL (1.6-8.9); Red Cell Distribution Width 17.4 % (11.5-14.5); Segmented Neutrophils % 70.5 %; White Blood Count 5.1 K/mcL (4.3-11.1)
[2019-05-09 06:15] LABS: Platelet Count 64 K/mcL (140-400)
[2019-05-09 06:33] LABS: BUN/Creatinine Ratio 28 (6-26); Blood Urea Nitrogen 29 mg/dL (8-23); Calcium 7.8 mg/dL (8.6-10.3); Carbon Dioxide 23 mEq/L (23-29); Chloride 101 mEq/L (98-107); Glucose 86 mg/dL (70-105); Osmolality,Calculated 271 (280-300); Potassium 3.8 mEq/L (3.5-5.1); Sodium 128 mEq/L (136-145); eGFR For African Americans > 60 (> 60); eGFR For Non-African Americans 52 (> 60)
[2019-05-09] MEDS: Metoprolol XL (24 HR) Succ 25 MG TAB.ER.24H PO SCH ×2 (08:39→20:47)
[2019-05-09] MEDS: Cholecalciferol (D-3) 1,000 UNIT (25MCG) TABLET PO SCH (08:39)
[2019-05-09] MEDS: Furosemide 40 MG TABLET PO SCH (08:40)
[2019-05-09] MEDS: Lactobacillus 1 EACH CAP.SPRINK PO SCH (08:40)
[2019-05-09] MEDS: Lactulose Oral Soln 20 GM/30 ML UDC PO SCH ×2 (08:42→20:47)
[2019-05-09] MEDS: Vancomycin Oral Soln 125 MG/2.5 ML UDC PO SCH ×4 (09:41→20:46)
--- NOTE | 2019-05-09 10:07 | Internal Med Progress Note ---
Date of Encounter: 05/09/19 Time of Encounter: 10:10 - Assessment and plan (1) Colitis Current Visit: Yes Status: Acute Assessment and plan: Continue current medication. Monitor. Follow labs. Continue contact precautions. (2) Cirrhosis Current Visit: Yes Status: Chronic Assessment and plan: Monitor labs. Continue lactulose Qualifiers: Hepatic cirrhosis type: unspecified hepatic cirrhosis Ascites presence: with ascites Qualified Code(s): K74.60 - Unspecified cirrhosis of liver; R18.8 - Other ascites (3) CREST (calcinosis, Raynaud's phenomenon, esophageal dysfunction, sclerodactyly, telangiectasia) Current Visit: Yes Status: Chronic Assessment and plan: Follow up with diet supervisor. Continue current regimen. (4) Weakness Current Visit: Yes Status: Acute Assessment and plan: PT and OT to eval and treat. Will follow progress. - Time Spent With Patient less than 15 minutes - Subjective Interval history: Participating well with therapy. Was able to ambulate in hallway with Walker with therapy. Denies any pain. States she is continuing to have diarrhea. On contact precautions for CDifF. Is trying to eat meals and encouraging PO fluids. Denies fever, chills, nausea or vomitting. Denies shortness of breath or chest pain. - Constitutional Vitals: Temp Pulse Resp BP Pulse Ox 97.2 F L 67 14 100/56 95 05/09/19 06:52 05/09/19 06:52 05/09/19 06:52 05/09/19 06:52 05/09/19 06:52 General appearance: Present: cooperative, mild distress, A&O X 3, no acute distress, answers questions appropriately - Head Head exam: Present: atraumatic, normocephalic - Eye Eye exam: Present: PERRL, conjuntiva pink, sclera anicteric Pupils: Present: PERRL - Neck Neck exam general surgery: Present: supple, trachea midline. Absent: lymphadenopathy - Respiratory Respiratory exam: Present: CTAB. Absent: accessory muscle use, rales, rhonchi, wheezes - Cardiovascular Cardiovascular exam: Present: RRR, +S1, +S2. Absent: diastolic murmur, gallop, rubs, systolic murmur - GI/Abdominal GI/Abdominal exam: Present: normal bowel sounds, soft, no peritoneal signs. Absent: distended, tenderness - Extremities Exam Extremities exam: Present: warm, radial pulses palpable and symmetrical. Absent: calf tenderness, cyanotic, pedal edema Additional comments: 2+ pitting edema bilateral lower extremities - Neurological Exam Neurological exam: Present: CN II-XII intact, oriented X3, no focal deficits. Absent: pronater drift, facial droop, speech deficit - Skin Skin exam: Present: dry, intact Internal Medicine: Result - Labs CBC & Chem 7: 05/09/19 05:30 05/09/19 05:30 Labs: Short CBC 05/09/19 Range/Units 05:30 WBC 5.1 (4.3-11.1) K/mcL Hgb 9.1 L D (11.5-15.4) g/dL Hct 28.2 L (35.3-44.9) % Plt Count 64 L (140-400) K/mcL Neutrophils # 3.6 (1.6-8.9) K/mcL BMP 05/09/19 05:30 Sodium 128 L Potassium 3.8 Chloride 101 Carbon Dioxide 23 BUN 29 H Creatinine 1.05 Glucose 86 Calcium 7.8 L - ABG Interpretation ABG results: PT/INR, D-dimer PT 12.4 Seconds (9.4-12.1) H 05/04/19 04:00 Consult Discharge Plan - Plan Referrals: Kam Abreu Jr, MD [Primary Care Provider] -
[2019-05-09] MEDS: Aspirin Enteric Coated 81 MG Tablet PO SCH (12:50)
[2019-05-09] MEDS: Spironolactone 25 MG TABLET PO SCH (12:50)
[2019-05-09 13:38] LABS: Alanine Aminotransferase 14 Units/L (7-52); Albumin/Globulin Ratio 0.8 (1.1-2.2); Alkaline Phosphatase 174 Units/L (34-104); Aspartate Amino Transferase 31 Units/L (13-39); Bilirubin,Direct 0.4 mg/dL (0.0-0.2); Bilirubin,Indirect 0.7 mg/dL (0.0-1.2); Bilirubin,Total 1.1 mg/dL (0.3-1.0); Globulin 2.6 g/dL (2.4-3.5); Total Protein 4.6 g/dL (6.4-8.9)
[2019-05-09] MEDS ORDERED: Ergocalciferol (VIT D2) 50,000 UNIT (1.25MG) CAP PO SCH ×2 (15:38→17:00)
[2019-05-09] MEDS: traMADol 50 MG TABLET PO PRN (20:47)
[2019-05-09] MEDS: CEVIMELINE PO SCH (20:47)
[2019-05-09] MEDS: DOXEPIN HCL PO SCH (20:48)
[2019-05-10] MEDS: Furosemide 40 MG TABLET PO SCH (08:10)
[2019-05-10] MEDS: Lactobacillus 1 EACH CAP.SPRINK PO SCH (08:10)
[2019-05-10] MEDS: Metoprolol XL (24 HR) Succ 25 MG TAB.ER.24H PO SCH ×2 (08:10→21:40)
[2019-05-10] MEDS: Cholecalciferol (D-3) 1,000 UNIT (25MCG) TABLET PO SCH (08:10)
[2019-05-10] MEDS: Lactulose Oral Soln 20 GM/30 ML UDC PO SCH ×2 (08:11→21:40)
[2019-05-10] MEDS: Vancomycin Oral Soln 125 MG/2.5 ML UDC PO SCH ×3 (08:11→16:08)
--- NOTE | 2019-05-10 10:43 | Internal Med Progress Note ---
Date of Encounter: 05/10/19 Time of Encounter: 10:41 - Assessment and plan (1) Weakness Current Visit: Yes Status: Acute Assessment and plan: This is improving. She is pleased with her progress with therapy and asks about when she can go home. I told her that this will be reassessed in meeting with therapies, tomorrow. (2) C. difficile colitis Current Visit: No Status: Acute Assessment and plan: She is to complete antibiotics today. Apparently, improving. (3) CKD (chronic kidney disease), stage IV Current Visit: Yes Status: Chronic Assessment and plan: Stable and will follow. (4) Pancytopenia Current Visit: No Status: Chronic Assessment and plan: Assumed to be related to cirrhosis and hypersplenism. Will follow. (5) Ascites Current Visit: No Status: Chronic Assessment and plan: Currently, clinically stable. Qualifiers: Ascites type: other type Qualified Code(s): R18.8 - Other ascites (6) Cirrhosis Current Visit: Yes Status: Chronic Assessment and plan: Ongoing problem and related to crest syndrome. Qualifiers: Hepatic cirrhosis type: unspecified hepatic cirrhosis Ascites presence: with ascites Qualified Code(s): K74.60 - Unspecified cirrhosis of liver; R18.8 - Other ascites (7) CREST (calcinosis, Raynaud's phenomenon, esophageal dysfunction, sclerodactyly, telangiectasia) Current Visit: Yes Status: Chronic Assessment and plan: Stable as noted. (8) Dysphagia Current Visit: No Status: Chronic Assessment and plan: She states this is improved. Qualifiers: Dysphagia type: unspecified Qualified Code(s): R13.10 - Dysphagia, unspecified (9) CAD (coronary artery disease) Current Visit: No Status: Chronic Assessment and plan: Clinically stable without signs or symptoms. Qualifiers: Coronary Disease-Associated Artery/Lesion type: [place] artery [place] vs. transplanted heart: [place] heart Associated angina: without angina Qualified Code(s): I25.10 - Atherosclerotic heart disease of [place] coronary artery without angina pectoris (10) Hyponatremia Current Visit: No Status: Acute Assessment and plan: Slightly improved and will follow. (11) DVT prophylaxis Current Visit: No Status: Acute Assessment and plan: Difficult situation. Will follow platelet count and none for now. (12) GERD (gastroesophageal reflux disease) Current Visit: Yes Status: Acute Assessment and plan: Controlled on PPI. Qualifiers: Esophagitis presence: esophagitis presence not specified Qualified Code(s): K21.9 - Gastro-esophageal reflux disease without esophagitis (13) Hyperlipidemia Current Visit: Yes Status: Acute Assessment and plan: Stable. Qualifiers: Hyperlipidemia type: unspecified Qualified Code(s): E78.5 - Hyperlipidemia, unspecified - Subjective Interval history: Patient is doing well except for itching in her lower extremities which she and nursing thing relates to edema. I concur. There is no rash or other signs of allergy, etc. She had explosive diarrhea this morning since starting back on her lactulose. We talked about her swelling, elevation, pain because of the swelling, possible diuresis, etc. I did let her know that albumin increased from 1.9 to 2. Patient has no complaint of chest discomfort, dyspnea, orthopnea, palpitations, nausea or vomiting, constipation or diarrhea, other changes in bowel habits, difficulty with urination, rash or itching, or other new complaints, except as mentioned above. Review of systems is otherwise negative. I discussed management of patient's care with nursing staff. - Constitutional Vitals: Temp Pulse Resp BP Pulse Ox 97.7 F 75 16 114/64 92 05/10/19 07:32 05/10/19 07:32 05/10/19 07:32 05/10/19 07:32 05/10/19 07:32 Exam: Examination: (Except as mentioned above): General: In no apparent distress. Alert and oriented 3. Nondiaphoretic. Head: Atraumatic and normocephalic. Respiratory: No use of accessory muscles. Lungs are clear throughout. Normal airflow. Cardiovascular: Regular rate and rhythm without murmur appreciated. Abdomen: Bowel sounds are normal. No hepatosplenomegaly mass or tenderness appreciated. Abdomen is still distended but not as much as last week. Extremities: No cyanosis clubbing or significant change in edema. No cord or calf tenderness. Skin: Warm and non-diaphoretic with no new lesions noted. Internal Medicine: Result - Labs CBC & Chem 7: 05/09/19 05:30 05/09/19 05:30 Labs: Liver Function 05/09/19 Range/Units 05:30 Total Bilirubin 1.1 H (0.3-1.0) mg/dL Direct Bilirubin 0.4 H (0.0-0.2) mg/dL AST 31 (13-39) Units/L ALT 14 (7-52) Units/L Alkaline Phosphatase 174 H (34-104) Units/L Albumin 2.0 L (3.5-5.7) g/dL - ABG Interpretation ABG results: PT/INR, D-dimer PT 12.4 Seconds (9.4-12.1) H 05/04/19 04:00 Consult Discharge Plan - Plan Referrals: Kam Abreu Jr, MD [Primary Care Provider] -
[2019-05-10] MEDS: Spironolactone 25 MG TABLET PO SCH (13:01)
[2019-05-10] MEDS: Aspirin Enteric Coated 81 MG Tablet PO SCH (13:01)
[2019-05-10] MEDS: Magic Mouthwash 10 ML UD Cup PO SCH (20:43)
[2019-05-10] MEDS: CEVIMELINE PO SCH (21:41)
[2019-05-10] MEDS: DOXEPIN HCL PO SCH (21:41)
[2019-05-10] MEDS: traMADol 50 MG TABLET PO PRN (21:45)
[2019-05-11] MEDS: Lactulose Oral Soln 20 GM/30 ML UDC PO SCH ×2 (07:58→21:41)
[2019-05-11] MEDS: Metoprolol XL (24 HR) Succ 25 MG TAB.ER.24H PO SCH ×2 (07:59→21:39)
[2019-05-11] MEDS: Lactobacillus 1 EACH CAP.SPRINK PO SCH (07:59)
[2019-05-11] MEDS: Furosemide 40 MG TABLET PO SCH (07:59)
[2019-05-11] MEDS: Cholecalciferol (D-3) 1,000 UNIT (25MCG) TABLET PO SCH (07:59)
[2019-05-11] MEDS: Magic Mouthwash 10 ML UD Cup PO SCH ×3 (08:00→16:51)
[2019-05-11 11:46] LABS: Alanine Aminotransferase 17 Units/L (7-52); Albumin 2.2 g/dL (3.5-5.7); Albumin/Globulin Ratio 0.7 (1.1-2.2); Alkaline Phosphatase 226 Units/L (34-104); Aspartate Amino Transferase 36 Units/L (13-39); BUN/Creatinine Ratio 25 (6-26); Blood Urea Nitrogen 26 mg/dL (8-23); Calcium 8.1 mg/dL (8.6-10.3); Carbon Dioxide 24 mEq/L (23-29); Chloride 102 mEq/L (98-107); Glucose 98 mg/dL (70-105); Magnesium 1.7 mg/dL (1.6-2.6); Osmolality,Calculated 277 (280-300); Potassium 3.8 mEq/L (3.5-5.1); Sodium 131 mEq/L (136-145); Total Protein 5.2 g/dL (6.4-8.9); eGFR For African Americans > 60 (> 60); eGFR For Non-African Americans 52 (> 60)
--- NOTE | 2019-05-11 11:47 | Internal Med Progress Note ---
Date of Encounter: 05/11/19 Time of Encounter: 11:45 - Assessment and plan (1) C. difficile colitis Current Visit: Yes Status: Acute Assessment and plan: Patient continues with watery stools today but also has been taking lactulose for her cirrhosis. Patient has finished her antibiotic therapy yesterday. Remains afebrile with a WBC of less than 6. We will continue to monitor closely. (2) Cirrhosis Current Visit: Yes Status: Chronic Assessment and plan: Patient continues with slightly distended abdomen, secondary to ascites. Patient's most recent ammonia level is a 29. Patient currently having frequent watery stools, greater than 10 times daily. Patient has finished her treatment for her C. difficile yesterday. Currently remains afebrile with a WBC of 5. Per her lactulose has been decreased to 5 mg twice a day and will be held if she has greater than 4 stools in 12 hours. Most recent alkaline phosphatase at 174. Do with current medications and plan a care. We will continue with therapy as tolerated. Qualifiers: Hepatic cirrhosis type: unspecified hepatic cirrhosis Ascites presence: with ascites Qualified Code(s): K74.60 - Unspecified cirrhosis of liver; R18.8 - Other ascites (3) Pancytopenia Current Visit: No Status: Chronic Assessment and plan: Patient continues of pancytopenia with most recent platelet count at 64. He moglobin 9.1. We will continue to monitor closely through serial labs. (4) CAD (coronary artery disease) Current Visit: No Status: Chronic Assessment and plan: No acute issues. Patient denies any chest discomforts or palpitations. We will continue with current medications and plan a care. We will continue with therapy as tolerated. Qualifiers: Coronary Disease-Associated Artery/Lesion type: [place] artery [place] vs. transplanted heart: [place] heart Associated angina: without angina Qualified Code(s): I25.10 - Atherosclerotic heart disease of [place] coronary artery without angina pectoris - Time Spent With Patient less than 15 minutes - Subjective Interval history: Patient appears relaxed and denies any current discomforts. Patient states that she continues to have multiple watery stools, stating that she has had at least 10 small stools today. Denies any abdominal cramping. Denies any dyspnea. Patient does complain about having itching to her bilateral lower legs, which shows multiple abrasions from her scratching. - Constitutional Vitals: Temp Pulse Resp BP Pulse Ox 97.4 F L 70 15 108/69 98 05/11/19 07:59 05/11/19 07:59 05/11/19 07:59 05/11/19 07:59 05/11/19 07:59 General appearance: Present: cooperative, mild distress, A&O X 3, no acute distress, answers questions appropriately - Head Head exam: Present: atraumatic, normocephalic - Eye Eye exam: Present: PERRL, conjuntiva pink, sclera anicteric Pupils: Present: PERRL - Neck Neck exam general surgery: Present: supple, trachea midline. Absent: lymphadenopathy - Respiratory Respiratory exam: Present: decreased breath sounds, CTAB. Absent: accessory muscle use, rales, rhonchi, wheezes - Cardiovascular Cardiovascular exam: Present: RRR, +S1, +S2. Absent: diastolic murmur, gallop, rubs, systolic murmur - GI/Abdominal GI/Abdominal exam: Present: distended, hyperactive bowel sounds, normal bowel sounds, soft, no peritoneal signs. Absent: tenderness Additional comments: Patient is abdomen remains slightly distended, but is soft and nontender. Hyperactive bowel sounds noted - Extremities Exam Extremities exam: Present: pedal edema, warm, radial pulses palpable and symmetrical. Absent: calf tenderness, cyanotic Additional comments: Patient continues with +2 pitting edema to bilateral lower extremities. Multiple small abrasions to her lower legs from scratching - Neurological Exam Neurological exam: Present: CN II-XII intact, oriented X3, no focal deficits. Absent: pronater drift, facial droop, speech deficit - Skin Skin exam: Present: dry, intact Internal Medicine: Result - Labs CBC & Chem 7: 05/09/19 05:30 05/11/19 11:18 - ABG Interpretation ABG results: PT/INR, D-dimer PT 12.4 Seconds (9.4-12.1) H 05/04/19 04:00 Consult Discharge Plan - Plan Referrals: Kam Abreu Jr, MD [Primary Care Provider] -
[2019-05-11] MEDS: Aspirin Enteric Coated 81 MG Tablet PO SCH (12:29)
[2019-05-11] MEDS: Spironolactone 25 MG TABLET PO SCH (12:29)
[2019-05-11 12:41] LABS: Hematocrit 30.5 % (35.3-44.9); Hemoglobin 9.6 g/dL (11.5-15.4); Mean Corpuscular HGB Conc 31.5 g/dL (31.6-35.5); Mean Corpuscular Hemoglobin 30.7 pg (28.0-33.3); Mean Corpuscular Volume 97.4 fL (83.0-100.0); Mean Platelet Volume 11.7 fL (9.4-12.4); Red Blood Count 3.13 M/mcL (3.82-4.97); Red Cell Distribution Width 18.7 % (11.5-14.5); White Blood Count 6.9 K/mcL (4.3-11.1)
[2019-05-11 13:15] LABS: Platelet Count 81 K/mcL (140-400)
--- NOTE | 2019-05-11 15:59 | Psychological Evaluation ---
Date of Encounter: 05/11/19 Time of Encounter: 10:30 History of Present Illness History of present illness: Ms. Sweeney is a 68 year old female with history of idiopathic crest syndrome for 10 years. She was in her usual state of health until about 10-14 days ago when she developed worsening diarrhea. She was found to have a C. difficile infection and was treated with rifamixin This did not help and she was placed on it though dose for approximately 3 days. She got worse and went to the [facility]. There, she was placed on oral vancomycin, was found to have markedly elevated white blood count at 42,000+. She had a extreme left shift and was treated with IV fluids, saline, oral salt tablets (as opposed to a strict low- salt diet) and other supportive care. While hospitalized, she slowly improved and was transferred to us for strengthening, ongoing care and return to normal function. Past Medical History - Psychiatric History Psychiatric history: Reports: no psych history Home Medications and Allergies Cevimeline HCl [Evoxac] 90 mg PO HS 09/19/15 [History] Doxepin HCl 30 mg PO HS 09/19/15 [History] Sildenafil Citrate [Revatio] 20 mg PO 3-4XD PRN 09/19/15 [History] Aspirin [Lo-Dose Aspirin EC] 81 mg PO 1200 04/25/19 [History] Atorvastatin [Lipitor] 40 mg PO 1200 04/25/19 [History] Calcium Carbonate/Vitamin D3 [Calcium 500 mg-Vit D3 600 Unit] 1 tab PO BID 04/25/19 [History] Ergocalciferol (VITAMIN D2) [Vitamin D2] 50,000 units PO MO 04/25/19 [History] Ferrous Sulfate 325 mg PO 1200 04/25/19 [History] Furosemide [Lasix] 40 mg PO QAM 04/25/19 [History] Lactulose [Enulose] 10 gm PO BID MDD 40GM 04/25/19 [History] Metoprolol Succinate [Toprol Xl] 50 mg PO BID 04/25/19 [History] Midodrine [ProAmatine] 5 mg PO TID 04/25/19 [History] Pantoprazole Sodium [Protonix] 40 mg PO QPM 04/25/19 [History] Rifaximin [Xifaxan] 550 mg PO BID 04/25/19 [History] Spironolactone [Aldactone] 25 mg PO 1200 04/25/19 [History] Tramadol HCl [Ultram] 50 mg PO Q8H PRN 04/25/19 [History] Lactobacillus [Culturelle] 2 each PO DAILY #30 cap.sprink 05/03/19 [Rx] Sodium Bicarbonate 650 mg PO TID #60 tablet 05/03/19 [Rx] Sodium Chloride [Sodium Chloride Tab] 1 gm PO TID #60 tablet 05/03/19 [Rx] Allergy/AdvReac Type Severity Reaction Status Date / Time codeine Allergy Mild Nausea Verified 04/25/19 16:46 Social History - Social History Social History: Pt is 48 years and has 2 adukt children. family is supportive. [employer] school diploma and worked in [employer]. Retired in 1999. - Tobacco Use Smoking Status: Never smoker - Alcohol Use Alcohol Use: none - Drug Use Drug Use: none Cognitive/Emotional Assessment - Cognitive Ability Level of Alertness: Alert Memory Description: Recent Intact, Remote Intact Orientation: Person, Place, Time Ability to Follow Directions: Good Speech Pattern: Normal rate, Normal rhythm, Normal tone, Appropriate Thought Process: Intact Calculations: Able to spell WORLD backw Additional Findings: Digits forward 4 and backward 2. noted confusion at times. Wears bilateral hearing aids. - Emotional Status Mood Description: Anxious, Irritable Affect Description: Euthymic/stable Coping Ability: Verbalizes positive coping skills Additional Findings: notes over last few months she is jolley and easily frustrated - pt agreed. Assessment & Plan - Diagnosis (1) Adjustment disorder with anxiety - Prognosis Prognosis: Good - Treatment Plan Treatment Plan/Recommendations: Deelop and train stress management skills to better cope with chronic medical condition. Treatment Frequency: weekly Next Session Date: 05/18/19 Procedures - Participants Therapy Participant: Patient, Family - Session Time Session Start Time: 10:30 Session Stop Time: 11:00
[2019-05-11] MEDS: traMADol 50 MG TABLET PO PRN (18:19)
[2019-05-11] MEDS: CEVIMELINE PO SCH (21:38)
[2019-05-11] MEDS: DOXEPIN HCL PO SCH (21:38)
[2019-05-12] MEDS: Lactulose Oral Soln 20 GM/30 ML UDC PO SCH ×2 (09:43→21:08)
[2019-05-12] MEDS: Lactobacillus 1 EACH CAP.SPRINK PO SCH (09:44)
[2019-05-12] MEDS: Metoprolol XL (24 HR) Succ 25 MG TAB.ER.24H PO SCH ×2 (09:44→21:07)
[2019-05-12] MEDS: Magic Mouthwash 10 ML UD Cup PO SCH ×3 (09:44→15:12)
[2019-05-12] MEDS: Cholecalciferol (D-3) 1,000 UNIT (25MCG) TABLET PO SCH (09:44)
[2019-05-12] MEDS: Furosemide 40 MG TABLET PO SCH (09:44)
--- NOTE | 2019-05-12 10:56 | Internal Med Progress Note ---
Date of Encounter: 05/12/19 Time of Encounter: 10:54 - Assessment and plan (1) C. difficile colitis Current Visit: Yes Status: Acute Assessment and plan: Patient continues with loose stools today but has had a decrease in frequency. Patient remains on a light dose of lactulose which will be held if she continues with her watery stools.. Patient has finished her antibiotic therapy 2 days ago. Remains afebrile with a WBC of less than 6. We will continue to monitor closely. (2) Cirrhosis Current Visit: Yes Status: Chronic Assessment and plan: Patient continues with slightly distended abdomen, secondary to ascites. Patient's most recent ammonia level is a 29. Patient currently having frequent loose stools, greater than 10 times daily. Patient has finished her treatment for her C. difficile 2 days ago. Currently remains afebrile with a WBC of 5. Per her lactulose has been decreased to 5 mg twice a day and will be held if she has greater than 4 stools in 12 hours. Do with current medications and plan a care. We will continue with therapy as tolerated. Patient noted to have a slight increase in edema to bilateral lower extremities. We will obtain daily weights and evaluate patient's fluid retention. Qualifiers: Hepatic cirrhosis type: unspecified hepatic cirrhosis Ascites presence: with ascites Qualified Code(s): K74.60 - Unspecified cirrhosis of liver; R18.8 - Other ascites (3) Pancytopenia Current Visit: No Status: Chronic Assessment and plan: Patient continues of pancytopenia with most recent platelet count at 81. He moglobin 9.6. We will continue to monitor closely through serial labs. (4) CAD (coronary artery disease) Current Visit: No Status: Chronic Assessment and plan: No acute issues. Patient denies any chest discomforts or palpitations. We will continue with current medications and plan a care. We will continue with therapy as tolerated. Qualifiers: Coronary Disease-Associated Artery/Lesion type: [place] artery [place] vs. transplanted heart: [place] heart Associated angina: without angina Qualified Code(s): I25.10 - Atherosclerotic heart disease of [place] coronary artery without angina pectoris - Time Spent With Patient less than 15 minutes - Subjective Interval history: Patient appears relaxed and denies any current discomforts. Patient states that she continues to have multiple loose stools, stating that she has had at least 4 small stools today. Denies any abdominal cramping. Denies any dyspnea. Patient does complain about having increased edema to her bilateral lower legs, which shows multiple abrasions from her scratching. - Constitutional Vitals: Temp Pulse Resp BP Pulse Ox 98.8 F 66 15 148/84 93 05/12/19 07:34 05/12/19 07:34 05/12/19 07:34 05/12/19 09:34 05/12/19 07:34 General appearance: Present: cooperative, mild distress, A&O X 3, no acute distress, answers questions appropriately - Head Head exam: Present: atraumatic, normocephalic - Eye Eye exam: Present: PERRL, conjuntiva pink, sclera anicteric Pupils: Present: PERRL - Neck Neck exam general surgery: Present: supple, trachea midline. Absent: lymphadenopathy - Respiratory Respiratory exam: Present: decreased breath sounds, CTAB. Absent: accessory muscle use, rales, rhonchi, wheezes - Cardiovascular Cardiovascular exam: Present: RRR, +S1, +S2. Absent: diastolic murmur, gallop, rubs, systolic murmur - GI/Abdominal GI/Abdominal exam: Present: distended, hyperactive bowel sounds, normal bowel sounds, soft, no peritoneal signs. Absent: tenderness Additional comments: Patient continues to have slightly distended abdomen which remains soft and nontender. Hyperactive bowel sounds noted all quadrants. - Extremities Exam Extremities exam: Present: pedal edema, warm, radial pulses palpable and symmetrical. Absent: calf tenderness, cyanotic Additional comments: Patient shows +2 edema to bilateral lower extremities which also appear erythemic. Patient has multiple light abrasions to bilateral legs from scratching - Neurological Exam Neurological exam: Present: CN II-XII intact, oriented X3, no focal deficits. Absent: pronater drift, facial droop, speech deficit - Skin Skin exam: Present: dry, intact Internal Medicine: Result - Labs CBC & Chem 7: 05/11/19 11:18 05/11/19 11:18 Labs: Short CBC 05/11/19 Range/Units 11:18 WBC 6.9 (4.3-11.1) K/mcL Hgb 9.6 L (11.5-15.4) g/dL Hct 30.5 L (35.3-44.9) % Plt Count 81 L (140-400) K/mcL BMP 05/11/19 11:18 Sodium 131 L Potassium 3.8 Chloride 102 Carbon Dioxide 24 BUN 26 H Creatinine 1.05 Glucose 98 Calcium 8.1 L Liver Function 05/11/19 Range/Units 11:18 Total Bilirubin 1.0 (0.3-1.0) mg/dL AST 36 (13-39) Units/L ALT 17 (7-52) Units/L Alkaline Phosphatase 226 H (34-104) Units/L Albumin 2.2 L (3.5-5.7) g/dL - ABG Interpretation ABG results: PT/INR, D-dimer PT 12.4 Seconds (9.4-12.1) H 05/04/19 04:00 Consult Discharge Plan - Plan Referrals: Kam Abreu Jr, MD [Primary Care Provider] -
[2019-05-12 11:31] LABS: Hemoglobin 9.5 g/dL (11.5-15.4); Mean Corpuscular HGB Conc 31.7 g/dL (31.6-35.5); Mean Corpuscular Hemoglobin 30.8 pg (28.0-33.3); Mean Corpuscular Volume 97.4 fL (83.0-100.0); Mean Platelet Volume 11.5 fL (9.4-12.4); Platelet Count 82 K/mcL (140-400); Red Blood Count 3.08 M/mcL (3.82-4.97); Red Cell Distribution Width 19.2 % (11.5-14.5); White Blood Count 6.7 K/mcL (4.3-11.1)
[2019-05-12 11:47] LABS: Calcium 8.3 mg/dL (8.6-10.3); Potassium 3.9 mEq/L (3.5-5.1)
[2019-05-12] MEDS ORDERED: Furosemide 40 MG TABLET PO ONE (12:00)
[2019-05-12] MEDS: traMADol 50 MG TABLET PO PRN (12:10)
[2019-05-12] MEDS: Aspirin Enteric Coated 81 MG Tablet PO SCH (12:10)
[2019-05-12] MEDS: Spironolactone 25 MG TABLET PO SCH (12:10)
[2019-05-12] MEDS: DOXEPIN HCL PO SCH (21:05)
[2019-05-12] MEDS: CEVIMELINE PO SCH (21:05)
[2019-05-13] MEDS: Metoprolol XL (24 HR) Succ 25 MG TAB.ER.24H PO SCH (08:26)
[2019-05-13 08:43] VITALS: BP 136/73
[2019-05-13] MEDS: Cholecalciferol (D-3) 1,000 UNIT (25MCG) TABLET PO SCH (08:43)
[2019-05-13] MEDS: traMADol 50 MG TABLET PO PRN (08:43)
[2019-05-13] MEDS: Lactulose Oral Soln 20 GM/30 ML UDC PO SCH (08:43)
[2019-05-13] MEDS: Lactobacillus 1 EACH CAP.SPRINK PO SCH (08:44)
[2019-05-13] MEDS: Magic Mouthwash 10 ML UD Cup PO SCH (08:44)
[2019-05-13] MEDS: Furosemide 40 MG TABLET PO SCH (08:44)
--- NOTE | 2019-05-13 10:44 | Discharge Summary ---
Date of Encounter: 05/13/19 Time of Encounter: 10:42 - Discharge Diagnosis (1) C. difficile colitis Priority: Primary Status: Acute Comments: Patient was treated for her C. difficile at the hospital and finished her antibiotic treatment during her stay at the rehabilitation. Patient continues to have loose stools but also has been on lactulose for her ammonia levels secondary to her cirrhosis. Patient has remained afebrile and her WBC count has been normal. Patient was instructed that she needed to follow-up with her family are within one week for further evaluation and treatment. (2) Cirrhosis Priority: Secondary Status: Chronic Comments: No acute issues. Patient continues with lactulose for her ammonia levels. Trish ent's last ammonia level was 29. Lactulose has been held for greater than 4 stools in 12 hours. Patient will be discharged with Lasix 40 mg daily due to fluid retention. Patient continues on Aldactone. Patient is recommended to have lab work done within one week after discharge and to follow-up with her PCP for further management. Patient will continue her rehabilitation through home health services after discharge Qualifiers: Hepatic cirrhosis type: unspecified hepatic cirrhosis Ascites presence: with ascites Qualified Code(s): K74.60 - Unspecified cirrhosis of liver; R18.8 - Other ascites (3) Pancytopenia Priority: Secondary Status: Chronic Comments: Patient continues with pancytopenia which has improved slightly with the most recent platelet count of 281. Last hemoglobin was 9.6. Patient is recommended to have lab work done within one week after discharge and to follow-up with her PCP for further management (4) CAD (coronary artery disease) Priority: Secondary Status: Chronic Comments: No acute issues during her stay of facility. Patient is to continue her current medications after discharge and follow-up with PCP. Qualifiers: Coronary Disease-Associated Artery/Lesion type: [place] artery [place] vs. transplanted heart: [place] heart Associated angina: without angina Qualified Code(s): I25.10 - Atherosclerotic heart disease of [place] coronary artery without angina pectoris Hospital course: Ms. Sweeney is a 68 year old female, with history of idiopathic crest syndrome for 10 years. She was in her usual state of health, when she developed worsening diarrhea. She was found to have a C. difficile infection and was treated with rifamixin This did not help and she was placed on it though dose for approximately 3 days. She got worse and went to the hospital. There, she was placed on oral vancomycin, was found to have markedly elevated white blood count at 42,000+. She had a extreme left shift and was treated with IV fluids, saline, oral salt tablets (as opposed to a strict low-salt diet) and other supportive care. While hospitalized, she slowly improved and was transferred to us for strengthening, ongoing care and return to normal function. Bowel movements persist had multiple times a day and very loose although she may have 2-3 bowel movements which are loose, at baseline because of her lactulose. She denies melena or hematochezia with any of these episodes. The crest syndrome has now affected mostly her liver so that she has cirrhosis with moderate hepatic failure for the last 2 years. She has been taking lactulose for same. She has esophageal varices and has had banding on 2 occasions. Her most recent EGD failed to show any need for banding. Even though she has significant hypoalbuminemia, she is not suffering from orthopnea. She notes that the lower extremities are markedly edematous, during this hospitalization. She has extensive coronary history with 2 mild heart attacks but has 8 stents placed. She has had a marginally low platelet count , with her last platelet level at 81. Last Hbg 9.6. She has had hyponatremia, which has improved to 131 on her last labs. Her Nacl tabs were discontinued. says that her memory is occasionally inhibited and it was especially bad before she began lactulose. Now, she is reasonable with some tremor noted when she is not able to take her lactulose. She has kidney problems related to overdiuresis and protein effects of liver dysfunction. Usual creatinine was noted to be a 1.5. During her stay in rehabilitation patient participated in physical therapy and progressed well. He finished her antibiotic therapy for her C. difficile but continued to have loose stools. Patient does continue on lactulose, which is being held when she has greater than 4 stools in12 hours. Patient's last ammonia level was 29. Her last alkaline phosphatase was at 229. Patient will be discharged on Lasix 40 mg daily due to continued fluid retention patient is recommended to follow up with her PCP N1 week and have lab work done within one week. Discussed with patient and she states understanding. Patient is continue therapy through home health services. Discharge discussed with: patient Time spent discussing smoking cessation with patient: 3 to 10 minutes - Time Spent with Patient Total time spent providing and/or coordinating discharge services: Time spent: Less than 30 minutes - Discharge Medications Prescriptions: No Action Sildenafil Citrate [Revatio] 20 mg PO 3-4XD PRN PRN Reason: Blood Pressure - High Doxepin HCl 30 mg PO HS Cevimeline HCl [Evoxac] 90 mg PO HS Aspirin [Lo-Dose Aspirin EC] 81 mg PO 1200 Atorvastatin [Lipitor] 40 mg PO 1200 Calcium Carbonate/Vitamin D3 [Calcium 500 mg-Vit D3 600 Unit] 1 tab PO BID Ergocalciferol (VITAMIN D2) [Vitamin D2] 50,000 units PO MO Ferrous Sulfate 325 mg PO 1200 Lactulose [Enulose] 10 gm PO BID MDD 40GM Metoprolol Succinate [Toprol Xl] 50 mg PO BID Midodrine [ProAmatine] 5 mg PO TID Pantoprazole Sodium [Protonix] 40 mg PO QPM Rifaximin [Xifaxan] 550 mg PO BID Tramadol HCl [Ultram] 50 mg PO Q8H PRN PRN Reason: Pain Furosemide [Lasix] 40 mg PO QAM Spironolactone [Aldactone] 25 mg PO 1200 Lactobacillus [Culturelle] 2 each PO DAILY #30 cap.sprink Sodium Bicarbonate 650 mg PO TID #60 tablet Sodium Chloride [Sodium Chloride Tab] 1 gm PO TID #60 tablet Home Medications: Cevimeline HCl [Evoxac] 90 mg PO HS 09/19/15 [History] Doxepin HCl 30 mg PO HS 09/19/15 [History] Sildenafil Citrate [Revatio] 20 mg PO 3-4XD PRN 09/19/15 [History] Aspirin [Lo-Dose Aspirin EC] 81 mg PO 1200 04/25/19 [History] Atorvastatin [Lipitor] 40 mg PO 1200 04/25/19 [History] Calcium Carbonate/Vitamin D3 [Calcium 500 mg-Vit D3 600 Unit] 1 tab PO BID 04/25/19 [History] Ergocalciferol (VITAMIN D2) [Vitamin D2] 50,000 units PO MO 04/25/19 [History] Ferrous Sulfate 325 mg PO 1200 04/25/19 [History] Furosemide [Lasix] 40 mg PO QAM 04/25/19 [History] Lactulose [Enulose] 10 gm PO BID MDD 40GM 04/25/19 [History] Metoprolol Succinate [Toprol Xl] 50 mg PO BID 04/25/19 [History] Midodrine [ProAmatine] 5 mg PO TID 04/25/19 [History] Pantoprazole Sodium [Protonix] 40 mg PO QPM 04/25/19 [History] Rifaximin [Xifaxan] 550 mg PO BID 04/25/19 [History] Spironolactone [Aldactone] 25 mg PO 1200 04/25/19 [History] Tramadol HCl [Ultram] 50 mg PO Q8H PRN 04/25/19 [History] Lactobacillus [Culturelle] 2 each PO DAILY #30 cap.sprink 05/03/19 [Rx] Sodium Bicarbonate 650 mg PO TID #60 tablet 05/03/19 [Rx] Sodium Chloride [Sodium Chloride Tab] 1 gm PO TID #60 tablet 05/03/19 [Rx] Allergies/Adverse Reactions: Allergy/AdvReac Type Severity Reaction Status Date / Time codeine Allergy Mild Nausea Verified 04/25/19 16:46 Date of admission: 05/03/19 16:06 Primary care physician: Kam Abreu Jr, MD Consults: 05/03/19 15:33 Consult to Occupational Therapy [CONS] Routine Comment: Evaluate, develop and implement POC Reason for Consult: WEAKNESS Does patient have active BEDREST order?: No Is patient medically & hemodynamically stable?: Yes Consult to Physical Therapy [CONS] Routine Comment: Evaluate, develop and implement POC Reason for Consult: WEAKNESS Does patient have active BEDREST order?: No Is patient medically & hemodynamically stable?: Yes Consult to Retail Support Associate [CONS] Routine Reason for SW Consult: DISCHARGE PLANNING 05/09/19 17:18 Consult to Psychology [CONS] Routine Consulting Provider: Ame Lara Reason for Consult: Possible depression; adjustment disorder Call Completed: No Discharging clinician: Kam Aquino - Constitutional Vitals: Temp Pulse Resp BP Pulse Ox 98.2 F 67 16 136/73 100 05/13/19 08:42 05/13/19 08:42 05/13/19 08:42 05/13/19 08:42 05/13/19 08:42 General appearance: Present: cooperative, mild distress, A&O X 3, no acute distress, answers questions appropriately - Head Head exam: Present: atraumatic, normocephalic - Eye Eye exam: Present: PERRL, conjuntiva pink, sclera anicteric Pupils: Present: PERRL - Neck Neck exam general surgery: Present: supple, trachea midline. Absent: lymphadenopathy - Respiratory Respiratory exam: Present: decreased breath sounds, CTAB. Absent: accessory muscle use, rales, rhonchi, wheezes - Cardiovascular Cardiovascular exam: Present: RRR, +S1, +S2. Absent: diastolic murmur, gallop, rubs, systolic murmur - GI/Abdominal GI/Abdominal exam: Present: distended, hyperactive bowel sounds, normal bowel sounds, soft, no peritoneal signs. Absent: tenderness Additional comments: Abdomen is slightly distended but remains soft and nontender. Bowel sounds are hyperactive. - Extremities Exam Extremities exam: Present: pedal edema, warm, radial pulses palpable and symmetrical. Absent: calf tenderness, cyanotic Additional comments: Patient has +2 pitting edema to bilateral lower legs with multiple small abrasions noted from scratching - Neurological Exam Neurological exam: Present: CN II-XII intact, oriented X3, no focal deficits. Absent: pronater drift, facial droop, speech deficit - Skin Skin exam: Present: dry, intact - Patient Status Disposition: Home Health Service Condition: Good Functional capacity at discharge: uses cane/walker Overall status at discharge: patient is progressing back to baseline - Discharge Instructions Follow Up With: Kam Abreu Jr, MD [Primary Care Provider] - - Diet and Activity Activity: ambulate only with your walker, as per physical therapy, increase activity as tolerated Diet: low fat, low cholesterol, low salt diet
--- NOTE | 2019-05-13 11:01 | Physician Discharge Referral ---
Home Health/Hosp Referral Info Transfer to: Home Health Provider in Charge Post Discharge: PCP - Diagnosis (1) C. difficile colitis Priority: Primary Status: Acute (2) Cirrhosis Priority: Secondary Status: Chronic (3) Pancytopenia Priority: Secondary Status: Chronic (4) CAD (coronary artery disease) Priority: Secondary Status: Chronic - Respiratory Orders Smoking Cessation: Smoking cessation has been advised. For more information, call the [place] Tobacco Quit Line at 9-421-INIS-NOW. - Diet/Nutrition Diet/Nutrition Orders: No Added Salt (SYLVIE), Renal, Cardiac - Activity Activity Orders: Up ad minesh, Walker - Services Needed Following services are medically necessary services: Nursing, Physical Therapy - Transfer Medications Home Medications: Cevimeline HCl [Evoxac] 90 mg PO HS 09/19/15 [History] Doxepin HCl 30 mg PO HS 09/19/15 [History] Sildenafil Citrate [Revatio] 20 mg PO 3-4XD PRN 09/19/15 [History] Aspirin [Lo-Dose Aspirin EC] 81 mg PO 1200 04/25/19 [History] Atorvastatin [Lipitor] 40 mg PO 1200 04/25/19 [History] Calcium Carbonate/Vitamin D3 [Calcium 500 mg-Vit D3 600 Unit] 1 tab PO BID 04/25/19 [History] Ergocalciferol (VITAMIN D2) [Vitamin D2] 50,000 units PO MO 04/25/19 [History] Ferrous Sulfate 325 mg PO 1200 04/25/19 [History] Furosemide [Lasix] 40 mg PO QAM 04/25/19 [History] Lactulose [Enulose] 10 gm PO BID MDD 40GM 04/25/19 [History] Metoprolol Succinate [Toprol Xl] 50 mg PO BID 04/25/19 [History] Midodrine [ProAmatine] 5 mg PO TID 04/25/19 [History] Pantoprazole Sodium [Protonix] 40 mg PO QPM 04/25/19 [History] Rifaximin [Xifaxan] 550 mg PO BID 04/25/19 [History] Spironolactone [Aldactone] 25 mg PO 1200 04/25/19 [History] Tramadol HCl [Ultram] 50 mg PO Q8H PRN 04/25/19 [History] Lactobacillus [Culturelle] 2 each PO DAILY #30 cap.sprink 05/03/19 [Rx] Sodium Bicarbonate 650 mg PO TID #60 tablet 05/03/19 [Rx] Sodium Chloride [Sodium Chloride Tab] 1 gm PO TID #60 tablet 05/03/19 [Rx] Allergies/Adverse Reactions: Allergy/AdvReac Type Severity Reaction Status Date / Time codeine Allergy Mild Nausea Verified 04/25/19 16:46 Certification: Further, I certify that my clinical findings support that this patient is homebound (i.e. absences from home require considerable and taxing effort and are for medical reasons or shinto services or infrequently or short duration when for other reasons) because: Homebound Reason: Leaving home requires considerable and taxing effort due to condition Attestation: My signature below is to certify that this patient is under my care and that I, or nurse practitioner, or a physician's assistant press operator offset working with me, has a [id number] encounter with this patient.
== END 2019-05-13 11:20 | disposition home health service (06) | DRG 945 ==
LOC: INPGRE 05-03 16:06